=== PATIENT | male | born 1930 | race Caucasian/White ===

== ENCOUNTER 2017-11-05 13:32 | Emergency (ER) | payer MEDICARE, BC ==
[2017-11-05] MEDS ORDERED: LABETALOL 5 MG/ML VIAL MDV IVP STA (13:46)
--- NOTE | 2017-11-05 13:50 | ED ---
Neuro HPI - General Stated Complaint: CVA Time Seen by Provider: 11/05/17 13:32 Source: EMS, RN notes reviewed Mode of arrival: EMS - History of Present Illness Is the patient presenting with stroke symptoms?: Yes Initial Comments: This is a 86-year-old male history of hypertension was last seen around 11:30 today he was found on the floor by his and his bedroom. EMS was called he was found have a right lateral gaze left hemiparesis. He was nonverbal and did not respond to verbal commands he does respond to painful stimulus. Injury reported. - Related Data Home Medications: Home Medications Medication Instructions Recorded Confirmed DULoxetine HCL [Cymbalta] 30 mg PO DAILY 11/05/17 11/05/17 Methotrexate Sodium [Methotrexate] 12.5 mg PO LAO 11/05/17 11/05/17 Methylphenidate HCl 10 mg PO BID 11/05/17 11/05/17 Triamterene-Hctz 37.5-25Mg 1 cap PO WE 11/05/17 11/05/17 [Dyazide 37.5-25 Capsule] Allergies/Adverse Reactions: Allergies Allergy/AdvReac Type Severity Reaction Status Date / Time No Known Allergies Allergy Verified 11/05/17 14:04 Review of Systems ROS Statement: Those systems with pertinent positive or pertinent negative responses have been documented in the HPI. ROS Other: All systems not noted in ROS Statement are negative. General Exam - General Exam Comments Initial Comments: This is a well-developed well-nourished awake lethargic male Limitations: altered mental status, physical limitation General appearance: lethargic, other Head exam: Present: atraumatic, normocephalic, normal inspection Eye exam: Present: other (Right lateral gaze pupils are equal round and reactive.) ENT exam: Present: mucous membranes dry Neck exam: Present: normal inspection. Absent: tenderness, meningismus, lymphadenopathy Respiratory exam: Present: normal lung sounds bilaterally. Absent: respiratory distress, wheezes, rales, rhonchi, stridor Cardiovascular Exam: Present: regular rate, normal rhythm, normal heart sounds. Absent: systolic murmur, diastolic murmur, rubs, gallop, clicks GI/Abdominal exam: Present: soft, normal bowel sounds. 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 Absent: full ROM Back exam: Present: normal inspection Neurological exam: Present: altered Psychiatric exam: Present: other (Unable to evaluate) Skin exam: Present: warm, dry, intact, normal color Stroke MDM - Lab Data Result diagrams: 11/05/17 13:56 11/05/17 13:56 Lab Results 11/05/17 11/05/17 11/05/17 Range/Units 13:45 13:56 13:56 WBC 5.1 (3.8-10.6) k/uL RBC 4.20 L (4.30-5.90) m/uL Hgb 14.5 (13.0-17.5) gm/dL Hct 44.1 (39.0-53.0) % MCV 105.1 H (80.0-100.0) fL MCH 34.6 (25.0-35.0) pg MCHC 32.9 (31.0-37.0) g/dL RDW 14.3 (11.5-15.5) % Plt Count 153 (150-450) k/uL Neutrophils % 59 % Lymphocytes % 30 % Monocytes % 6 % Eosinophils % 2 % Basophils % 1 % Neutrophils # 3.0 (1.3-7.7) k/uL Lymphocytes # 1.5 (1.0-4.8) k/uL Monocytes # 0.3 (0-1.0) k/uL Eosinophils # 0.1 (0-0.7) k/uL Basophils # 0.0 (0-0.2) k/uL Macrocytosis Moderate PT (9.0-12.0) sec INR (<1.2) APTT (22.0-30.0) sec Sodium 140 (137-145) mmol/L Potassium 3.9 (3.5-5.1) mmol/L Chloride 104 (98-107) mmol/L Carbon Dioxide 27 (22-30) mmol/L Anion Gap 9 mmol/L BUN 15 (9-20) mg/dL Creatinine 1.01 (0.66-1.25) mg/dL Est GFR (MDRD) Af Amer >60 (>60 ml/min/1.73 sqM) Est GFR (MDRD) Non-Af >60 (>60 ml/min/1.73 sqM) Glucose 96 (74-99) mg/dL POC Glucose (mg/dL) 66 L (75-99) mg/dL POC Glu Dietetic Tech ID Ammy Felder Calcium 9.5 (8.4-10.2) mg/dL Total Bilirubin 1.1 (0.2-1.3) mg/dL AST 31 (17-59) U/L ALT 36 (21-72) U/L Alkaline Phosphatase 98 (38-126) U/L Total Protein 6.7 (6.3-8.2) g/dL Albumin 4.0 (3.5-5.0) g/dL 11/05/17 Range/Units 13:56 WBC (3.8-10.6) k/uL RBC (4.30-5.90) m/uL Hgb (13.0-17.5) gm/dL Hct (39.0-53.0) % MCV (80.0-100.0) fL MCH (25.0-35.0) pg MCHC (31.0-37.0) g/dL RDW (11.5-15.5) % Plt Count (150-450) k/uL Neutrophils % % Lymphocytes % % Monocytes % % Eosinophils % % Basophils % % Neutrophils # (1.3-7.7) k/uL Lymphocytes # (1.0-4.8) k/uL Monocytes # (0-1.0) k/uL Eosinophils # (0-0.7) k/uL Basophils # (0-0.2) k/uL Macrocytosis PT 10.5 (9.0-12.0) sec INR 1.1 (<1.2) APTT 26.8 (22.0-30.0) sec Sodium (137-145) mmol/L Potassium (3.5-5.1) mmol/L Chloride (98-107) mmol/L Carbon Dioxide (22-30) mmol/L Anion Gap mmol/L BUN (9-20) mg/dL Creatinine (0.66-1.25) mg/dL Est GFR (MDRD) Af Amer (>60 ml/min/1.73 sqM) Est GFR (MDRD) Non-Af (>60 ml/min/1.73 sqM) Glucose (74-99) mg/dL POC Glucose (mg/dL) (75-99) mg/dL POC Glu Dietetic Tech ID Calcium (8.4-10.2) mg/dL Total Bilirubin (0.2-1.3) mg/dL AST (17-59) U/L ALT (21-72) U/L Alkaline Phosphatase (38-126) U/L Total Protein (6.3-8.2) g/dL Albumin (3.5-5.0) g/dL - NIH Stroke Scale 1a. Level of Consciousness: (1) not alert, arousable 1b. LOC Questions: (2) answers no questions correctly 1c. LOC Commands: (2) performs no tasks correctly 2. Best Gaze: (2) forced deviation 3. Visual: (0) no visual loss 4. Facial Palsy: (1) minor paralysis 5a. Motor Arm Left: (3) no gravity effort 5b. Motor Arm Right: (1) drift 6a. Motor Leg Left: (2) some gravity effort 6b. Motor Leg Right: (1) drift 7. Limb Ataxia: (0) absent 8. Sensory: (0) normal 9. Best Language: (un) mute/global aphasia 10. Dysarthria: (0) normal 11. Extinction/Inattention: (2) profound inattention - Thrombolytic Inclusion/Exclusion Thrombolytic Contraindications: Hx of ICH/AVM/Aneurysms - Radiology Data Radiology results: report reviewed (Patient does have an intraparenchymal bleed on the right hemisphere. I did discuss the case with Dr. Asif), image reviewed - EKG Data -: EKG Interpreted by Me EKG shows normal: sinus rhythm (Sinus rhythm 64. Interval 202 QRS 88 daily since QTC of 400/412 artifact is present) Past Medical History Past Medical History: Diabetes Mellitus, Hypertension Additional Past Medical History / Comment(s): PER PTS -PT WAS DX APPROX A MONTH AGO WITH DM. History of Any Multi-Drug Resistant Organisms: None Reported Past Surgical History: Tonsillectomy Past Anesthesia/Blood Transfusion Reactions: No Reported Reaction Past Psychological History: No Psychological Hx Reported Smoking Status: Former smoker Past Alcohol Use History: None Reported Past Drug Use History: None Reported - Past Family History Father Family Medical History: Dementia Mother Family Medical History: Cancer Additional Family Medical History / Comment(s): OVARIAN CANCER Sister(s) Family Medical History: Cancer Additional Family Medical History / Comment(s): ESOPHAGEAL CANER Course Vital Signs 11/05/17 11/05/17 11/05/17 13:35 13:50 14:05 Temperature 97.3 F L Pulse Rate 70 70 62 Respiratory 18 18 16 Rate Blood Pressure 207/99 180/92 174/90 O2 Sat by Pulse 95 97 99 Oximetry - Reevaluation(s) Reevaluation #1: 11/05/17 14:38 Patient did have slight movement of his left upper extremity. Critical Care Time Critical Care Time: Yes Critical Care Time: 45 minutes of critical care time which includes monitoring initially EMS run and discussed with paramedics history physical labs x-rays discussion with the interventional is discussion with radiology. Discussion with family members. Several re-evaluations the patient. Discussion with the emergency department at [facility]. Disposition Clinical Impression: Cerebrovascular accident Disposition: OTHER INSTITUTION NOT DEFINED Condition: Serious Referrals: Per Nicole MD [Primary Care Provider] - 1-2 days - Out of Hospital Transfer - Req. Specs Out of Hospital Transfer - Requested Specifics: Neurological ICU
--- NOTE | 2017-11-05 13:57 | CT ---
EXAMINATION TYPE: CT brain wo con for TPA DATE OF EXAM: 11/05/2017 COMPARISON: Previous study dated 05/18/2016. HISTORY: Lt side weakness CT DLP: 1064.3 mGycm Automated exposure control for dose reduction was used. FINDINGS: There is a 4.3 x 4.8 x 3 cm intraparenchymal hemorrhage in the right frontal lobe. This is effacing t he frontal horn of the right lateral ventricle. There is no significant subfalcine shift. There are generalized changes of sulcal prominence and ventriculomegaly, compatible with atrophic jud nge. There is diffuse periventricular white matter lucency, compatible with small vessel ischemic jud nge. Visualized portions of the paranasal sinuses are clear. There is fluid in the right-sided mastoi d air cells. IMPRESSION: 1. LARGE INTRAPARENCHYMAL BLEED ON THE RIGHT. 2. ATROPHIC CHANGE. 3. CHRONIC WHITE MATTER ISCHEMIC CHANGE. 4. FINDINGS CONSISTENT WITH RIGHT-SIDED MASTOIDITIS.
[2017-11-05 14:06] VITALS: TEMP 97.3
[2017-11-05] MEDS ORDERED: DEXTROSE 50%-WATER 50 ML SYRINGE IVP STA (14:07)
[2017-11-05 14:08] LABS: Glucose,Whole Blood 66 mg/dL (75-99)
[2017-11-05 14:15] LABS: Basophils % (A) 1 %; Eosinophils # (A) 0.1 k/uL (0-0.7); Eosinophils % (A) 2 %; HCT 44.1 % (39.0-53.0); HGB 14.5 gm/dL (13.0-17.5); Lymphocytes # (A) 1.5 k/uL (1.0-4.8); Lymphocytes % (A) 30 %; MCH 34.6 pg (25.0-35.0); MCHC 32.9 g/dL (31.0-37.0); MCV 105.1 fL (80.0-100.0); Macrocytosis Moderate; Mean Platelet Volume 7.6; Monocytes # (A) 0.3 k/uL (0-1.0); Monocytes % (A) 6 %; Neutrophils % (A) 59 %; Platelet Count 153 k/uL (150-450); RDW 14.3 % (11.5-15.5); WBC 5.1 k/uL (3.8-10.6)
[2017-11-05 14:20] LABS: ALT 36 U/L (21-72); AST 31 U/L (17-59); Alkaline Phosphatase 98 U/L (38-126); Anion Gap 9 mmol/L; Blood Urea Nitrogen 15 mg/dL (9-20); Calcium 9.5 mg/dL (8.4-10.2); Carbon Dioxide 27 mmol/L (22-30); Chloride 104 mmol/L (98-107); Glucose 96 mg/dL (74-99); INR 1.1 (<1.2); Partial Thromboplastin Time 26.8 sec (22.0-30.0); Potassium 3.9 mmol/L (3.5-5.1); Prothrombin Time 10.5 sec (9.0-12.0); Sodium 140 mmol/L (137-145); Total Bilirubin 1.1 mg/dL (0.2-1.3); Total Protein 6.7 g/dL (6.3-8.2)
[2017-11-05 14:35] VITALS: RESP 18
[2017-11-05 14:38] LABS: Creatine Kinase 119 U/L (55-170)
--- NOTE | 2017-11-05 14:39 | ED ---
Medical Decision Making - Lab Data Result diagrams: 11/05/17 13:56 11/05/17 13:56 Lab Results 11/05/17 11/05/17 11/05/17 Range/Units 13:45 13:56 13:56 WBC 5.1 (3.8-10.6) k/uL RBC 4.20 L (4.30-5.90) m/uL Hgb 14.5 (13.0-17.5) gm/dL Hct 44.1 (39.0-53.0) % MCV 105.1 H (80.0-100.0) fL MCH 34.6 (25.0-35.0) pg MCHC 32.9 (31.0-37.0) g/dL RDW 14.3 (11.5-15.5) % Plt Count 153 (150-450) k/uL Neutrophils % 59 % Lymphocytes % 30 % Monocytes % 6 % Eosinophils % 2 % Basophils % 1 % Neutrophils # 3.0 (1.3-7.7) k/uL Lymphocytes # 1.5 (1.0-4.8) k/uL Monocytes # 0.3 (0-1.0) k/uL Eosinophils # 0.1 (0-0.7) k/uL Basophils # 0.0 (0-0.2) k/uL Macrocytosis Moderate PT (9.0-12.0) sec INR (<1.2) APTT (22.0-30.0) sec Sodium 140 (137-145) mmol/L Potassium 3.9 (3.5-5.1) mmol/L Chloride 104 (98-107) mmol/L Carbon Dioxide 27 (22-30) mmol/L Anion Gap 9 mmol/L BUN 15 (9-20) mg/dL Creatinine 1.01 (0.66-1.25) mg/dL Est GFR (MDRD) Af Amer >60 (>60 ml/min/1.73 sqM) Est GFR (MDRD) Non-Af >60 (>60 ml/min/1.73 sqM) Glucose 96 (74-99) mg/dL POC Glucose (mg/dL) 66 L (75-99) mg/dL POC Glu Vacuum Filter Operator ID Ammy Felder Calcium 9.5 (8.4-10.2) mg/dL Total Bilirubin 1.1 (0.2-1.3) mg/dL AST 31 (17-59) U/L ALT 36 (21-72) U/L Alkaline Phosphatase 98 (38-126) U/L Total Protein 6.7 (6.3-8.2) g/dL Albumin 4.0 (3.5-5.0) g/dL 11/05/17 Range/Units 13:56 WBC (3.8-10.6) k/uL RBC (4.30-5.90) m/uL Hgb (13.0-17.5) gm/dL Hct (39.0-53.0) % MCV (80.0-100.0) fL MCH (25.0-35.0) pg MCHC (31.0-37.0) g/dL RDW (11.5-15.5) % Plt Count (150-450) k/uL Neutrophils % % Lymphocytes % % Monocytes % % Eosinophils % % Basophils % % Neutrophils # (1.3-7.7) k/uL Lymphocytes # (1.0-4.8) k/uL Monocytes # (0-1.0) k/uL Eosinophils # (0-0.7) k/uL Basophils # (0-0.2) k/uL Macrocytosis PT 10.5 (9.0-12.0) sec INR 1.1 (<1.2) APTT 26.8 (22.0-30.0) sec Sodium (137-145) mmol/L Potassium (3.5-5.1) mmol/L Chloride (98-107) mmol/L Carbon Dioxide (22-30) mmol/L Anion Gap mmol/L BUN (9-20) mg/dL Creatinine (0.66-1.25) mg/dL Est GFR (MDRD) Af Amer (>60 ml/min/1.73 sqM) Est GFR (MDRD) Non-Af (>60 ml/min/1.73 sqM) Glucose (74-99) mg/dL POC Glucose (mg/dL) (75-99) mg/dL POC Glu Vacuum Filter Operator ID Calcium (8.4-10.2) mg/dL Total Bilirubin (0.2-1.3) mg/dL AST (17-59) U/L ALT (21-72) U/L Alkaline Phosphatase (38-126) U/L Total Protein (6.3-8.2) g/dL Albumin (3.5-5.0) g/dL Disposition Clinical Impression: Cerebrovascular accident, Hypertensive emergency Disposition: OTHER INSTITUTION NOT DEFINED Condition: Serious Referrals: Per Nicole MD [Primary Care Provider] - 1-2 days - Out of Hospital Transfer - Req. Specs Out of Hospital Transfer - Requested Specifics: Neurological ICU
--- NOTE | 2017-11-05 14:40 | XR ---
EXAMINATION TYPE: XR chest 1V portable DATE OF EXAM: 11/05/2017 COMPARISON: May 18, 2016 HISTORY: Shortness of breath TECHNIQUE: Single frontal view of the chest is obtained. FINDINGS: There is no focal air space opacity, pleural effusion, or pneumothorax seen. The cardiac silhouette size is within normal limits. The osseous structures are intact. There could be mild cep halization of the pulmonary vessels. IMPRESSION: There could be mild CHF.
[2017-11-05 14:51] LABS: Creatine Kinase MB 2.1 ng/mL (0.0-2.4); Troponin I <0.012 ng/mL (0.000-0.034)
[2017-11-05 14:54] VITALS: BP 134/77; PULSE 76
== END 2017-11-05 14:50 | disposition short-term general hospital (02) ==
LOC: EC 13:32
DX: I63.9 Cerebral infarction, unspecified (principal); I16.0 Hypertensive urgency; I10 Essential (primary) hypertension; G81.94 Hemiplegia, unspecified affecting left nondominant side; R53.83 Other fatigue; Z87.891 Personal history of nicotine dependence; Z79.899 Other long term (current) drug therapy
CPT/HCPCS: 36415; 70450; 71045; 80053; 82550; 82553; 84484; 85025; 85610; 85730; 93005; 96365; 96375; 99291